=== PATIENT | female | born 2005 | race Caucasian/White ===

== ENCOUNTER 2025-06-24 19:00 | Inpatient (IN) | payer OTHER, MEDICAID ==
[~2025-06-24 19:00] MED LIST: Lidocaine 1% (PF) 30 ML VIAL SC PRN; hydrALAZINE 20 MG/ML VIAL SLOW IVP PRN
[2025-06-24 23:40] LABS: Hematocrit 28.5 % (34.9-44.5); Hemoglobin 9.2 g/dL (12.0-15.5); Mean Corpuscular Hemoglobin 25.2 pg (27.0-33.0); Mean Corpuscular Volume 78.1 fL (81.6-98.3); Platelet Count 244 10x3/uL (150-450); Red Blood Cell (RBC) Count 3.65 10x6/uL (3.90-5.03); White Blood Cell (WBC) Count 8.85 10x3/uL (3.5-10.5)
[2025-06-25 00:15] LABS: HIV (1/2) Antibody/Antigen Non-Reactive (NonReactive); HIV 1/2 INDEX 0.14 S/CO (<1.00); Hep B Surf Ag - L&D Non-Reactive S/CO (NonReactive)
[2025-06-25 00:16] LABS: Syphilis Antibody Index 0.04 S/CO (<1.00 Non-Reactive)
[2025-06-25 00:49] VITALS: BMI 28.6
[2025-06-25] MEDS: Oxytocin 30 units/NS 500 ML 500 ML IV SCH (11:50)
[2025-06-25] MEDS: fentaNYL/Ropivacaine Epidural 100 ML ONE (14:13)
[2025-06-25] MEDS ORDERED: Acetaminophen 325 MG TAB PO PRN (14:25)
[2025-06-25] MEDS ORDERED: diphenhydrAMINE 50 MG/ML VIAL IVP PRN (14:25)
[2025-06-25] MEDS ORDERED: Ondansetron PF 4 MG/2 ML Vial IVP PRN (14:25)
[2025-06-25] MEDS ORDERED: Communication Order-Pharmacy FS SCH (14:30)
[2025-06-25] MEDS: fentaNYL 2 mcg/Ropivacaine 0.2% Epidural 100 ML CADD EPIDURAL SCH (23:00)
[2025-06-25] MEDS: Ondansetron PF 4 MG/2 ML Vial IVP PRN (23:50)
[2025-06-26] MEDS ORDERED: Milk Of Magnesia 30 ML UDCUP PO PRN (02:18)
[2025-06-26] MEDS ORDERED: hydrALAZINE 20 MG/ML VIAL SLOW IVP PRN (02:18)
[2025-06-26] MEDS ORDERED: Bisacodyl 10 MG SUPP PR PRN (02:18)
[2025-06-26] MEDS: Oxytocin 30 units/NS 500 ML 500 ML IV SCH (02:26)
[2025-06-26] MEDS ORDERED: Oxytocin 30 units/NS 500 ML 500 ML IV SCH (03:30)
[2025-06-26] MEDS: Methylergonovine 0.2 MG/ML VIAL ONE (03:57)
[2025-06-26] MEDS: Tranexamic Acid 1,000 MG/10 ML VIAL ONE (03:57)
[2025-06-26] MEDS: Ondansetron PF 4 MG/2 ML Vial IVP PRN (04:55)
[2025-06-26] MEDS: Ibuprofen 800 MG TAB PO SCH ×2 (05:01→13:32)
[2025-06-26] MEDS: Methylergonovine 0.2 MG/ML VIAL IM SCH (07:28)
[2025-06-26] MEDS: Tranexamic Acid 1,000 MG/10 ML VIAL IVP SCH (07:28)
[2025-06-26] MEDS: Ferrous Sulfate 325 MG TAB PO SCH (08:59)
[2025-06-26] MEDS: Methylergonovine 0.2 MG TAB PO SCH (08:59)
[2025-06-26] MEDS: HYDROcodone/Acetaminophen 5/325 mg Tablet PO PRN (09:07)
[2025-06-26] MEDS ORDERED: Bupivacaine 0.25% HCL 30 ML VIAL ONE (12:17)
[2025-06-26] MEDS: Benzocaine-Menthol 82.5 ML CAN TOP PRN (21:32)
[2025-06-27 08:16] VITALS: BP 118/71; TEMP 98.1
== END 2025-06-27 13:50 | disposition home or self-care (01) | DRG 807 ==
LOC: CSHLD 20:06 → CSHPP 06-26 05:10
PROVIDERS: ADMIT Obstetrics & Gynecology; ATTEND Obstetrics & Gynecology
PROC: 10E0XZZ Delivery of Products of Conception, External Approach (ICD-10-PCS; principal; 2025-06-25)
PROC: 0KQM0ZZ Repair Perineum Muscle, Open Approach (ICD-10-PCS; 2025-06-25)
DX: O70.1 Second degree perineal laceration during delivery (principal); Z37.0 Single live birth; Z3A.39 39 weeks gestation of pregnancy
CPT/HCPCS: 36415; 51702; 85027; 86780; 86850; 86900; 86901; 87340; 87389; J0665; J2210; J2405; J2590